=== PATIENT | male | born 1955 | race Caucasian/White ===

== ENCOUNTER 2021-01-28 08:16 | Emergency (ER) | payer OTHER ==
[~2021-01-28] VITALS: Ht 182.9 cm; Wt 79.4 kg
[~2021-01-28 08:16] MED LIST: CARI350T34; MESA400C PO; MESA400C2; METF-1022; SITA50TA3
[2021-01-28 08:23] VITALS: BP 182/108
[2021-01-28] MEDS ORDERED: MORPHINE SULFATE 4 MG/ML SYR IM ONE (08:30)
[2021-01-28] MEDS ORDERED: KETOROLAC 30 MG/ML VIAL IM ONE (08:30)
[2021-01-28] MEDS ORDERED: LID5T TP (08:33)
[2021-01-28] MEDS ORDERED: DICL100G5 TP (08:33)
[2021-01-28] MEDS ORDERED: ACET-8386 PO (08:33)
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
[2021-01-28] MEDS ORDERED: LIDOCAINE 5% 1 EA PATCH TP SCH (09:00)
--- NOTE | 2021-01-28 09:08 | NUR ---
PATIENT C/O SOB AND CHEST PAIN, MD AT BEDSIDE EVALUATING PATIENT.
--- NOTE | 2021-01-28 09:12 | NUR ---
EMT AT BEDSIDE FOR EKG
--- NOTE | 2021-01-28 09:39 | NUR ---
XRAY AT BEDSIDE
--- NOTE | 2021-01-28 09:50 | NUR ---
BLOOD SAMPLES TAKEN AND WALKED TO LAB.
[2021-01-28 10:30] LABS: BASOPHILS # (AUTO) 0.1 K/uL (0.00-0.22); EOSINOPHILS # (AUTO) 0.2 K/uL (0-0.4); RED BLOOD CELL COUNT(AUTO) 5.59 MIL/uL (4.20-6.10)
[2021-01-28 10:36] LABS: BASOPHILS % (AUTO) 0.8 % (0.0-2.0); EOSINOPHILS % (AUTO) 1.6 % (0.0-4.0); HEMATOCRIT 50.7 % (36-52); HEMOGLOBIN 17.1 g/dL (12.0-18.0); LYMPHOCYTES # (AUTO) 1.9 K/uL (2.0-11.5); LYMPHOCYTES % (AUTO) 17.8 % (20.5-51.1); MEAN CORPUSCULAR HEMOGLOBIN 31 pg (27-31); MEAN CORPUSCULAR HGB CONC 34 g/dL (33-37); MEAN CORPUSCULAR VOLUME 90.7 fL (80-94); MONOCYTES % (AUTO) 8.9 % (1.7-9.3); NEUTROPHILS # (AUTO) 7.7 K/uL (1.8-7.7); NEUTROPHILS % (AUTO) 70.9 % (42.2-75.2); PLATELET COUNT (AUTO) 367 K/uL (140-450); RED CELL DISTRIBUTION WIDTH 16.6 % (11.6-13.7); WHITE BLOOD COUNT (AUTO) 10.9 K/uL (4.8-10.8)
[2021-01-28 10:39] LABS: ALBUMIN 4.3 g/dL (3.4-5.0); ANION GAP 18.4 (8-16); CARBON DIOXIDE 23.8 mmol/L (21-32); CREATININE 1.1 mg/dL (0.6-1.3); POTASSIUM 4.2 mmol/L (3.5-5.1); TOTAL BILIRUBIN 0.4 mg/dL (0.0-1.0)
[2021-01-28 11:03] VITALS: BP 134/84
--- NOTE | 2021-01-28 11:27 | NUR ---
Patient discharged with v/s stable. Written and verbal after care instructions given and explained. Patient alert, oriented and verbalized understanding of instructions. Ambulatory with steady gait. All questions addressed prior to discharge. ID band removed. Patient advised to follow up with PMD. Rx of NORCO, DICLOFENAC SODIUM GEL, LIDODERM PATCH given. Patient educated on indication of medication including possible reaction and side effects. Opportunity to ask questions provided and answered.
== END 2021-01-28 11:27 | disposition home or self-care (01) ==
LOC: MED 08:16
DX: M54.5 Low back pain (principal); G89.29 Other chronic pain; M25.551 Pain in right hip; R07.9 Chest pain, unspecified; E11.9 Type 2 diabetes mellitus without complications; Z79.1 Long term (current) use of non-steroidal anti-inflammatories (NSAID); Z79.899 Other long term (current) drug therapy
CPT/HCPCS: 36415; 71045; 80053; 84484; 85025; 93005; 96372; 99285; J1885; J2270; Q0092

== ENCOUNTER 2022-03-17 18:08 | Inpatient (IN) | payer OTHER ==
[~2022-03-17] VITALS: Ht 182.9 cm; Wt 66.7 kg
[~2022-03-17 18:08] MED LIST changes: +ACET-8905 PO; +DICL100G5 TP; +LID5T TP; -METF-1022; +METF-1253
[2022-03-17 18:25] VITALS: BP 106/93
--- NOTE | 2022-03-17 18:38 | NUR ---
PT AMB TO BED 10
--- NOTE | 2022-03-17 18:45 | NUR ---
67/M WALKED IN C/O BACK PAIN ACCOMPANIED BY LEFT LEG NUMBNESS. PT REPORTS HAVING LAMINECTOMY 02/24 AND HAS DEVELOPED THE PAIN SINCE THEN. PT HR ELEVATED AT TRIAGE. PT PLACED IN GOWN AND ON MONITOR. EKG DONE AT BEDSIDE. IV ESTABLISHED TO RIGHT AC WITH 20G. PMH: DM
--- NOTE | 2022-03-17 19:20 | NUR ---
hand off report given to Danyel hinson
[2022-03-17] MEDS ORDERED: PIPERACILLIN/TAZOBACTAM 3.375 GM in DEXTROSE 5% 50 ML IV ONE (19:40)
[2022-03-17] MEDS ORDERED: NACL 0.9% 2,000 ML IV ONE (19:40)
[2022-03-17] MEDS ORDERED: VANCOMYCIN 1,000 MG in DEXTROSE 5% 250 ML IV ONE (19:40)
[2022-03-17] MEDS ORDERED: OXYC60TE PO (19:43)
--- NOTE | 2022-03-17 19:45 | NUR ---
Patient resting comfortably in bed, alert, chest rise and fall symmetrical, no s/s of distress.
[2022-03-17] MEDS ORDERED: ONDANSETRON 4 MG/2 ML VIAL IVP ONE (20:00)
[2022-03-17] MEDS ORDERED: MORPHINE SULFATE 4 MG/ML SYR IVP ONE ×2 (20:00→20:55)
[2022-03-17 20:07] LABS: BASOPHILS # (AUTO) 0.1 K/uL (0.00-0.22); BASOPHILS % (AUTO) 0.7 % (0.0-2.0); EOSINOPHILS # (AUTO) 0.2 K/uL (0-0.4); EOSINOPHILS % (AUTO) 1.3 % (0.0-4.0); HEMATOCRIT 48.6 % (36-52); HEMOGLOBIN 16.4 g/dL (12.0-18.0); LYMPHOCYTES # (AUTO) 2.9 K/uL (2.0-11.5); LYMPHOCYTES % (AUTO) 23.8 % (20.5-51.1); MEAN CORPUSCULAR HEMOGLOBIN 32 pg (27-31); MEAN CORPUSCULAR HGB CONC 34 g/dL (33-37); MEAN CORPUSCULAR VOLUME 93.7 fL (80-94); NEUTROPHILS # (AUTO) 8.1 K/uL (1.8-7.7); NEUTROPHILS % (AUTO) 66.2 % (42.2-75.2); PLATELET COUNT (AUTO) 486 K/uL (140-450); RED BLOOD CELL COUNT(AUTO) 5.19 MIL/uL (4.20-6.10); RED CELL DISTRIBUTION WIDTH 14.4 % (11.6-13.7); WHITE BLOOD COUNT (AUTO) 12.1 K/uL (4.8-10.8)
--- NOTE | 2022-03-17 20:10 | NUR ---
Patient to radiology.
[2022-03-17 20:27] LABS: PROTHROMBIN TIME 10.5 secs (10.8-13.4)
[2022-03-17] MEDS ORDERED: PIPERACILLIN/TAZOBACTAM 3.375 GM VIAL IV ONE (20:29)
--- NOTE | 2022-03-17 20:30 | NUR ---
Patient back from radiology.
--- NOTE | 2022-03-17 20:30 | NUR ---
Patient resting comfortably in bed, alert, chest rise and fall symmetrical, no s/s of distress.
[2022-03-17 20:37] LABS: ALBUMIN 3.9 g/dL (3.4-5.0); CARBON DIOXIDE 28.1 mmol/L (21-32); CREATININE 1.3 mg/dL (0.6-1.3); POTASSIUM 4.1 mmol/L (3.5-5.1); TOTAL BILIRUBIN 0.5 mg/dL (0.0-1.0)
[2022-03-17] MEDS ORDERED: VANCOMYCIN 1,000 MG VIAL ONE (21:14)
--- NOTE | 2022-03-17 21:58 | NUR ---
Patient resting comfortably in bed, alert, chest rise and fall symmetrical, no s/s of distress.
--- NOTE | 2022-03-17 23:00 | NUR ---
Patient resting comfortably in bed, alert, chest rise and fall symmetrical, no s/s of distress.
--- NOTE | 2022-03-18 01:23 | NUR ---
Patient resting comfortably in bed, alert, chest rise and fall symmetrical, no s/s of distress.
[2022-03-18] MEDS ORDERED: MORPHINE SULFATE 4 MG/ML SYR IVP ONE (01:35)
--- NOTE | 2022-03-18 02:12 | NUR ---
Patient resting comfortably in bed, alert, chest rise and fall symmetrical, no s/s of distress.
--- NOTE | 2022-03-18 03:15 | NUR ---
Patient resting comfortably in bed, alert, chest rise and fall symmetrical, no s/s of distress.
[2022-03-18] MEDS ORDERED: HYDROmorphone PFS 2 MG/ML SYR IVP ONE (04:30)
[2022-03-18] MEDS ORDERED: HYDROmorphone PFS 2 MG/ML SYR ONE (04:34)
--- NOTE | 2022-03-18 04:39 | NUR ---
Patient resting comfortably in bed, alert, chest rise and fall symmetrical, no s/s of distress.
[2022-03-18 04:42] LABS: APPEARANCE,URINE CLEAR (CLEAR); BILIRUBIN,URINE NEGATIVE (NEGATIVE); BLOOD, URINE NEGATIVE (NEGATIVE); COLOR,URINE YELLOW (YELLOW); LEUKOCYTE ESTERASE ,URINE NEGATIVE (NEGATIVE); NITRITE, URINE NEGATIVE (NEGATIVE); UGLUCOSE TRACE (NEGATIVE)
[2022-03-18] MEDS ORDERED: KCL 20 MEQ/WATER INJ PREMIX 200 ML IV PRN (04:55)
[2022-03-18] MEDS ORDERED: MAG SULF 2000 MG/WATER PREMIX 50 ML IV PRN (04:55)
[2022-03-18] MEDS ORDERED: MAGNESIUM OXIDE 400 MG TAB PO PRN (04:55)
[2022-03-18] MEDS ORDERED: ONDANSETRON 4 MG/2 ML VIAL IVP PRN (04:55)
[2022-03-18] MEDS ORDERED: ACETAMINOPHEN 325 MG TAB PO PRN (04:55)
[2022-03-18] MEDS ORDERED: POTASSIUM CHLORIDE 10 MEQ TABER PO PRN (04:55)
[2022-03-18] MEDS ORDERED: DEXTROSE 50% 50 ML SYR IVP PRN (05:00)
--- NOTE | 2022-03-18 06:35 | NUR ---
Patient resting comfortably in bed, alert, chest rise and fall symmetrical, no s/s of distress.
[2022-03-18] MEDS: BLOOD GLUCOSE MONITORING 1 DEV DEV FS SCH ×4 (07:03→21:48)
[2022-03-18] MEDS: MORPHINE SULFATE 4 MG/ML SYR IVP PRN ×4 (07:19→21:27)
--- NOTE | 2022-03-18 07:24 | NUR ---
Change of shift report given to Azalia LOVE. Azalia LOVE verbalized understanding of report, no further questions.
--- NOTE | 2022-03-18 07:30 | NUR ---
RECEIVED REPORT FROM ARNOLD LOVE. PT CALM AND RESTING. ON GOWN AND ON MONITOR
--- NOTE | 2022-03-18 07:48 | NUR ---
Patient will be admitted to care of DR. JUSTIN. Admited to MS. Will go to room 125A. Belongings list completed. Report to PAUL LOVE.
--- NOTE | 2022-03-18 08:03 | NUR ---
RECEIVED BEDSIDE REPORT FROM ER NURSE. PT IS A&OX4, ON ROOM AIR. PT STATES PAIN MEDICATION ADMINISTERED IN ER IS HELPING MANAGE HIS BACK PAIN. PT HAS 18G IV ON THE LEFT AC, WHICH IS PATENT & INTACT CURRENTLY SALINE LOCKED.
--- NOTE | 2022-03-18 09:22 | NUR ---
PATIENT HAS BEEN SCREENED AND CATEGORIZED LOW NUTRITION RISK. PATIENT WILL BE SEEN WITHIN 7 DAYS OF ADMISSION. 03/25/[address] REVIEW[address] BY KACEY FISHMAN RD
[2022-03-18] MEDS: ENOXAPARIN 40 MG/0.4 ML SYR SUBQ SCH (09:28)
[2022-03-18] MEDS: HYDROcodone/APAP 5/325 MG 1 TAB TAB PO PRN (10:32)
[2022-03-18 12:00] VITALS: BP 149/97
--- NOTE | 2022-03-18 13:00 | NUR ---
DISCHARGE PLANNING PATIENT IS A 67-YEAR-OLD MALE ADMITTED ON 03/18/2022 AT [facility]/ED DUE TO CONSTANT BACK PAIN. PATIENT HAD A BACK SURGERY LAST MONTH. PATIENT HAS MEDICAL HISTORY OF DIABETES AND LAMINECTOMY ON 02/24/2022. LEGAL RECEPTIONIST'S MET WITH PATIENT AT BEDSIDE TO DISCUSS AND GATHER PATIENT'S COLLATERAL INFORMATION. PATIENT WAS AWAKE AND ALERT AT THE TIME OF VISIT. PATIENT STATED THAT HE IS LIVING AT HIS SISTER'S HOME WITH HIS MOTHER. PER PATIENT HIS SISTER IS CAREGIVING FOR HIS MOTHER AND RECENTLY DISCUSSED WITH PATIENT THAT SHE IS UNABLE TO CARE FOR HIM AND HIS MOTHER AT THE SAME TIME. THEREFORE SHE ASKED PATIENT TO LEAVE THE HOUSE OR FIND ANOTHER PLACE TO STAY THAT CAN MEET HIS NEEDS DUE TO SISTER NOT BEEN ABLE TO CARE FOR BOTH. PER PATIENT HE IS REALLY UPSET AND OFFENDED WITH HIS FAMILY AND DO NOT WANT TO CONSIDER THEM HIS EMERGENCY CONTACTS. PATIENT REFUSED TO PROVIDE THEIR INFORMATION TO SW AT THE TIME OF THE VISIT. DISCUSSED WITH PATIENT LEVELS OF CARE AND NEEDED RECOMMENDATIONS FROM MD. PATIENT AGREED AND STATED THAT IF MD. RECOMMENDS A SNF FOR PT. OR REHAB HE WILL BE WILLING TO GO AND AFTER HIS DC PLAN WILL BE CONSIDERING A [facility] FAC[facility]. PER PATIENT HE IS GETTING ABOUT $960.00 PER MONTH FROM [facility] AND ABOUT $ 320.00 A MONTH FROM DISABILITY. SW INFORMED PATIENT THAT SW WILL ENDORSE INFORMATION TO CM. PER PATIENT HE HAS NO ISSUES GETTING OR TAKING HIS MEDICATIONS AND GETS THEM FROM [facility]/ IN [facility] [place]. AND [facility] IN [facility]. PER PATIENT HE HAS ONLY A CANE AND NO OTHER DME. HE HAS NOT GOT ANY OTHER DME AT HOME EVEN AFTER HIS SURGERY. DALJIT DISCUSSED WITH PATIENT ABOUT IMPORTANCE OF MAKING AN APPOINTMENT TO FOLLOW UP WITH PCP DR. LYMAN AT [facility] WHEN HE IS READY FOR DISCHARGE PATIENT AGREED. PATIENT ALSO STATED THAT HE WILL NEED TO TRANSPORTATION AT DISCHARGE, TO EITHER HIS SISTER'S HOME WHERE HE WILL BE RETURNING AFTER HE IS READY OR STABLE TO DISCHARGE, IF [facility]/MD DO NOT RECOMMEND A SNF PLACEMENT FOR P.T OT REHAB. SW THANKED PATIENT FOR ALL HIS INFORMATION. SW/CM WILL FOLLOW UP NEEDED.
--- NOTE | 2022-03-18 13:23 | NUR ---
PHYSICAL THERAPIST ASSISTED PT WITH GETTING OUT OF BED, BUT PT INSISTED ON RETURNING TO BED AFTER FEW STEPS. PT IS NOW RESTING COMFORTABLY.
--- NOTE | 2022-03-18 15:19 | NUR ---
DC PLANNIN YRS OLD MALE PATIENT WAS ADMITTED FROM HOME WITH A DX OF BACK PAIN PATIENT HAD BACK SURGERY RECENTLY LAMINECTOMY ON 02/24. XR LUMBAR SPINE SHOWED NEGATIVE FOR COMPRESSION DEFORMITY. LUMBAR SPINE SHOWED NO OBVIOUS ACUTE FINDINGS IN THE LUMBAR SPINE. ADMINISTERED IV MORPHINE FOR PAIN AND CONTINUED HOME MEDS. DC PLAN TO GO HOME WHEN STABLE. CM TO FOLLOW Addendum: 03/19/22 at 1132 by Joellen Baig RN DC PLANNING: PATIENT HAS AN ORDER FOR MRI SPINE WITH CONTRAST. CALLED [facility] STATED THEY DON'T HAVE SUPERVISOR PACKING ROOM UNTIL 03/24 CALLED MAXIMILIANO CALDERON [phone] AND FAXED THE ORDER TO [phone] AND [facility] MRI DEPT. AWAITING FOR CALL BACK. CM TO FOLLOW Addendum: 03/19/22 at 1444 by Joellen Baig RN DC PLANNING: RECEIVED A CALL FROM IVETTE AT [facility] STATED NO TO SEND PATIENT TO [facility] BECAUSE NOT CONTRACTED WITH [facility] INSTEAD TO TR[facility]. FAXED REQUEST [facility] AND SPOKE WITH HILDA KRISHNA STATED WILL CHECK WITH MRI DEPT AND CALL BACK. CAMPBELL TO FOLLOW Addendum: 03/19/22 at 1707 by Joellen Baig RN DC PLANNING: FAXED THE LETTER AGREEMENT AND MRI QUESTIONER TO [facility]. IVETTE HIGHTOWER FROM [facility] PROVIDE THE AUTH FOR [facility] [id number] AND FOR TRANSPORT [id number]. [facility] TRANSPORT WILL CALL WITH [facility]. ONCE SUPERVISOR PACKING ROOM AVAILABLE PLS ACTIVATE THE CALL TO [facility] [phone] IT WILL CALL AND SCHEDULED IT WAIT AND RETURN FOR 1 HR. NOTIFIED RUDDY BARBOSA TO FOLLOW. Addendum: 03/19/22 at 1714 by Joellen Baig RN DC PLANNING: RECEIVED A CALL FROM ERENDIRA STEVENS SUP AT [facility] STATED LET THE NURSE TO CALL RADIOLOGY NURSE [phone] NOTIFIED RAMANA LOVE. RUDDY STEVENS SUP TO FOLLOW Addendum: 03/22/22 at 1222 by Joellen Baig RN DC PLANNING: RECEIVED A CALL FROM SHANANN STATED SHE WORKS FOR THE [employer] [phone] STATED PATIENT CALLED HE AND NOTIFIED HER THAT HE WAS ADMITTED TO THE HOSPITAL. PER SHANNAN HE WAS SCHEDULED TO MRI ON THE 03/17 AND PATIENT COULDN'T WAIT ANY LONGER AND LEFT WITHOUT DOING IT. RUDDY STEVENSPLYWOOD AND VENEER REPAIRER RECEIVED A CALL FRO DR JONNY TERRY [phone] STATED HE REQUESTED PATIENT TO BE TRANSFERRED TO [facility], ACCEPTING DR WILL BE DR HARVEY. FAXED ALL PAPERWORK TO [facility] [phone]. CM TO FOLLOW Addendum: 03/22/22 at 1621 by Joellen Baig RN DC PLANNING: PATIENT IS ACCEPTED AT [facility] [address] [address] CAN GO TO ROOM 212 A # TO GIVE REPORT [phone] EXT [phone] .[facility] TRANSPORT WITH [facility] AWAITING FOR ETA. NOTIFIED MATTHEW LOVE. CAMPBELL TO FOLLOW Addendum: 03/23/22 at 1201 by Joellen Baig RN RECEIVED A CALL FROM [facility] SPOKE WITH BARRY STATED NEEDS AUTH FROM [facility]. CALLED [facility] STATED THEY CALLED 03/22 AT 5:30 THAT THEY ARE UNABLE TO GET AUTH. CM DIDN'T RECEIVE ANY CALLS CHECKED WITH HOUSE SUP AND PRIMARY NURSE BERTO NOT RECEIVED ANY CALLS. CAMPBELL CALLED SHANNAN HIGHTOWER AT [facility] [phone] NOTIFIED HER THAT [facility] IS RESPONSIBLE FOR THE TRANSPORT. PER SHANNAN SINCE [facility] IS GIVING AUTH FOR HOSPITAL STAY THEY HAVE TO GIVE AUTH FOR TRANSPORT BUT CM EXPLAINED THAT [facility] WON'T COVER THE AREA. HOWEVER [facility] HAS TO FAX THE ORDER TO [facility] FAX [phone] ATTENTION TO DERREK BRUNO CALLED [facility] SPOKE WITH BARRY AND EXPLAINED TO REQUEST AND PROVIDE ALL THE INFO.
[2022-03-18 16:00] VITALS: BP 127/74
--- NOTE | 2022-03-18 19:26 | NUR ---
RECEIVED ENDORSEMENT FROM PAUL LOVE, PATIENT WAS STABLE DURING THE CHANGE OF SHIFT. PATIENT ALERT AND ORIENTED. PATIENT WAS ABLE TO VERBALIZE HE WAS IN PAIN IN HIS BACK X 10/10. NURSING WILL GIVE PAIN MANAGEMENT WITH HIS ROUTINE MEDICATIONS. PATIENT IS ON ROOM AIR WITH NO NOTED RESPIRATORY DISTRESS. BEDSIDE COMMODE WAS AVAILABLE. SIDE RAILS UP X 2 FOR SAFETY AND ADJUSTMENTS. CALL LIGHT WITHIN REACH. [email or web address]
--- NOTE | 2022-03-18 19:30 | NUR ---
ENDORSED PT TO NIGHTSHIFT RN. PT IN STABLE CONDITION.
[2022-03-18 20:00] VITALS: BP 121/84
--- NOTE | 2022-03-18 21:24 | NUR ---
C/O BACK PAIN , BP 125/82 , RR 18 , O2 SAT 99 % - WILL MEDICATE .
--- NOTE | 2022-03-18 21:55 | NUR ---
NO BLOOD SUGAR COVERAGE WAS PATIENT WAS WITHIN RANGE. PATIENT TOLERATED MEDICATION PASS WELL. PATIENT WAS GIVEN PAIN MEDICATION PER HIS REQUEST BY COVERING RN. PATIENT HAD NO NOTED RESPIRATORY DISTRESS. SIDE RAILS UP X 2 FOR COMFORT AND SELF ADJUSTMENT. CALL LIGHT WITHIN REACH. [email or web address]
--- NOTE | 2022-03-18 23:19 | NUR ---
DURING ROUNDS NURSING NOTED PATIENT IN BED ASLEEP. NO NOTED S/S OF PAIN/DISCOMFORT. NOTED PATIENT'S CHEST RISING AND FALLING WITHOUT DISTRESS. SIDE RAILS UP X 2. CALL LIGHT WITHIN REACH FOR ASSISTANCE. [email or web address]
--- NOTE | 2022-03-19 01:15 | NUR ---
PATIENT IN BED ASLEEP. NO NOTED S/S OF PAIN/DISCOMFORT. NOTED PATIENT'S CHEST RISING AND FALLING WITHOUT DISTRESS. SIDE RAILS UP X 2. CALL LIGHT WITHIN REACH FOR ASSISTANCE. [email or web address]
--- NOTE | 2022-03-19 02:29 | NUR ---
WHEN THE TIME I WILL GIVE PAIN MED - I FOUND PT SLEEPING , I CALL HIS NAME 4X , BUT STILL SLEEPING SOUNDLY , BY HIS FACIAL EXPRESSION - 0 PAIN - WILL CONT. TO MONITOR , CALL LIGHT WITHIH REACH .
--- NOTE | 2022-03-19 02:33 | NUR ---
RE VISITS PT - STILL PT SLEEPING , CHEST RISE AND FALL EQUALLY - WILL CONT . TO MONITOR , CALL LIGHT WITHIN REACH .
--- NOTE | 2022-03-19 03:38 | NUR ---
PATIENT NOTED ASLEEP AT THIS TIME. PATIENT REMAINS CLEAN AND DRY. SIDE RAILS UP X 3. CALL LIGHT WITHIN REACH. NURSING WILL FREQUENT THIS ROOM FOR ANTICIPATED NEEDS. [email or web address]
[2022-03-19 04:00] VITALS: BP 134/96
[2022-03-19 05:43] LABS: BASOPHILS # (AUTO) 0.1 K/uL (0.00-0.22); BASOPHILS % (AUTO) 0.5 % (0.0-2.0); EOSINOPHILS # (AUTO) 0.2 K/uL (0-0.4); EOSINOPHILS % (AUTO) 1.6 % (0.0-4.0); HEMATOCRIT 48.6 % (36-52); HEMOGLOBIN 16.1 g/dL (12.0-18.0); LYMPHOCYTES # (AUTO) 2.4 K/uL (2.0-11.5); LYMPHOCYTES % (AUTO) 17.1 % (20.5-51.1); MEAN CORPUSCULAR HEMOGLOBIN 31 pg (27-31); MEAN CORPUSCULAR HGB CONC 33 g/dL (33-37); MEAN CORPUSCULAR VOLUME 95.1 fL (80-94); NEUTROPHILS # (AUTO) 10.5 K/uL (1.8-7.7); NEUTROPHILS % (AUTO) 73.8 % (42.2-75.2); PLATELET COUNT (AUTO) 435 K/uL (140-450); RED BLOOD CELL COUNT(AUTO) 5.11 MIL/uL (4.20-6.10); RED CELL DISTRIBUTION WIDTH 14.2 % (11.6-13.7); WHITE BLOOD COUNT (AUTO) 14.3 K/uL (4.8-10.8)
[2022-03-19 06:26] LABS: ALBUMIN 3.6 g/dL (3.4-5.0); ANION GAP 9.9 (8-16); CREATININE 1.1 mg/dL (0.6-1.3); MAGNESIUM 2.2 mg/dL (1.8-2.4); POTASSIUM 4.9 mmol/L (3.5-5.1); TOTAL BILIRUBIN 0.6 mg/dL (0.0-1.0)
[2022-03-19] MEDS: INSULIN LISPRO SLIDING SCALE 100 UNITS/ML VIAL SUBQ PRN ×2 (06:46→21:17)
[2022-03-19] MEDS: BLOOD GLUCOSE MONITORING 1 DEV DEV FS SCH ×4 (06:46→21:16)
--- NOTE | 2022-03-19 07:10 | NUR ---
ENDORSED PATIENT CARE TO RAMANA LOVE FOR CONTINUITY OF CARE, PATIENT WAS STABLE DURING THE CHANGE OF CARE. [email or web address]
[2022-03-19 08:00] VITALS: BP 134/96
[2022-03-19] MEDS: ENOXAPARIN 40 MG/0.4 ML SYR SUBQ SCH (09:00)
[2022-03-19] MEDS: MORPHINE SULFATE 4 MG/ML SYR IVP PRN ×3 (09:00→23:01)
[2022-03-19] MEDS: GABAPENTIN 300 MG CAP PO SCH ×3 (09:00→17:00)
[2022-03-19 15:10] VITALS: BP 134/96
--- NOTE | 2022-03-19 19:30 | NUR ---
RECEIVED REPORT FROM DAY SHIFT NURSE RAMANA AWAKE ALERT ORIENTED, ON ROOM AIR. NO DISTRESS. ABLE TO AMBULATE WITH ASSIST. NO COMPLAINTS OF PAIN AT THIS TIME. SAFETY MEASURES IN PLACE. CALL LIGHT WITHIN REACH.
--- NOTE | 2022-03-19 21:16 | NUR ---
BLOOD SUGAR CHECKED WAS 197. HUMALOG INSULIN ADMINISTERED ORDERED PER SLIDING SCALE.
--- NOTE | 2022-03-19 21:45 | NUR ---
PATIENT LEFT TO [facility] FOR MRI PICKED UP BY 2 COMMUNITY ARTS WORKER IN STABLE CONDITION.
--- NOTE | 2022-03-19 22:40 | NUR ---
PATIENT IS BACK FROM [facility] PROCEDURE NOT DONE. PER [facility] STAFF [facility] CALLED EAR[facility]ER DURING DAY SHIFT INFORMING PAPER WORKS NOT COMPLETE/CORRECT SO THEY CANCELLED THE APPT AT 1930 BUT NOBODY INFORM MATERIAL CONTROL ANALYST.
[2022-03-20] VITALS: BP 146/94
--- NOTE | 2022-03-20 02:17 | NUR ---
MADE ROUNDS PATIENT AWAKE WITH FACE COVERED WITH BLANKET. NO DISTRESS, BREATHING NORMAL WITH SYMMETRICAL RISE AND FALL OF THE CHEST.
[2022-03-20] MEDS: MORPHINE SULFATE 4 MG/ML SYR IVP PRN ×4 (04:43→18:47)
--- NOTE | 2022-03-20 04:43 | NUR ---
COMPLAINED OF SEVERE BACK PAIN, MEDICATED WITH MORPHINE IVP.
[2022-03-20 05:59] LABS: BASOPHILS # (AUTO) 0.1 K/uL (0.00-0.22); BASOPHILS % (AUTO) 0.6 % (0.0-2.0); EOSINOPHILS # (AUTO) 0.2 K/uL (0-0.4); EOSINOPHILS % (AUTO) 1.1 % (0.0-4.0); HEMATOCRIT 47.4 % (36-52); HEMOGLOBIN 15.7 g/dL (12.0-18.0); LYMPHOCYTES # (AUTO) 2.4 K/uL (2.0-11.5); LYMPHOCYTES % (AUTO) 14.5 % (20.5-51.1); MEAN CORPUSCULAR HEMOGLOBIN 31 pg (27-31); MEAN CORPUSCULAR HGB CONC 33 g/dL (33-37); MEAN CORPUSCULAR VOLUME 94.6 fL (80-94); MONOCYTES # (AUTO) 1.4 K/uL (0.8-1.0); MONOCYTES % (AUTO) 8.3 % (1.7-9.3); NEUTROPHILS # (AUTO) 12.6 K/uL (1.8-7.7); NEUTROPHILS % (AUTO) 75.5 % (42.2-75.2); PLATELET COUNT (AUTO) 397 K/uL (140-450); RED BLOOD CELL COUNT(AUTO) 5.02 MIL/uL (4.20-6.10); RED CELL DISTRIBUTION WIDTH 14.1 % (11.6-13.7); WHITE BLOOD COUNT (AUTO) 16.7 K/uL (4.8-10.8)
[2022-03-20] MEDS: BLOOD GLUCOSE MONITORING 1 DEV DEV FS SCH ×4 (06:33→20:28)
--- NOTE | 2022-03-20 06:35 | NUR ---
BLOOD SUGAR CHECK WAS 119 NO INSULIN COVERAGE NEEDED.
[2022-03-20 06:44] LABS: ALBUMIN 3.2 g/dL (3.4-5.0); CARBON DIOXIDE 30.9 mmol/L (21-32); CREATININE 1.1 mg/dL (0.6-1.3); POTASSIUM 3.9 mmol/L (3.5-5.1); TOTAL BILIRUBIN 0.3 mg/dL (0.0-1.0)
--- NOTE | 2022-03-20 07:16 | NUR ---
ENDORSED PATIENT TO MORNING SHIFT NURSE FOR CONTINUITY OF CARE.
--- NOTE | 2022-03-20 07:17 | NUR ---
RECEIVED PT FROM BRAIDING OPERATOR NURSE YUE FOR CONTINUITY OF CARE. PT SLEEPING, EASILY AROUSABLE BY VERBAL STIMULI. A&O4, ABLE TO MAKE NEEDS KNOWN. RESPIRATIONS EVEN AND UNLABORED ON RA. NO DISTRESS NOTED. IV SITE ON LFA, SL. CALL LIGHT WITHIN REACH. SAFETY PRECAUTIONS IN PLACE. WILL CONTINUE TO MONITOR.
[2022-03-20 08:00] VITALS: BP 118/79
[2022-03-20] MEDS: GABAPENTIN 300 MG CAP PO SCH ×3 (08:54→16:27)
--- NOTE | 2022-03-20 08:54 | NUR ---
ADMINISTERED SCHEDULED MORNING MEDS. PT TEACHING ABOUT MEDS GIVEN. PT VERBALIZED UNDERSTANDING.
[2022-03-20] MEDS: ENOXAPARIN 40 MG/0.4 ML SYR SUBQ SCH (08:55)
--- NOTE | 2022-03-20 09:34 | NUR ---
PT COMPLAINED OF BACK PAIN 02/08. PRN PAIN MED ADMINISTERED BY KATE MILLER.
[2022-03-20] MEDS: MORPHINE TAB ER 15 MG TABER PO SCH ×2 (10:37→21:25)
[2022-03-20] MEDS ORDERED: VANCOMYCIN PER PHARMACY MC PRN (11:45)
[2022-03-20] MEDS: INSULIN LISPRO SLIDING SCALE 100 UNITS/ML VIAL SUBQ PRN ×2 (12:09→21:29)
--- NOTE | 2022-03-20 12:15 | NUR ---
SLIDING SCALE INSULIN ADMINISTERED FOR BS 193. SCHEDULED MED ALSO ADMINISTERED. PT TOLERATED WELL.
[2022-03-20] MEDS: VANCOMYCIN 750 MG in DEXTROSE 5% 250 ML IV SCH (14:06)
--- NOTE | 2022-03-20 14:06 | NUR ---
IV ABX ADMINISTERED BY KATE MILLER. NO ADVERSE REACTION NOTED. PT COMPLAINED OF 8/0 BACK PAIN. PRN PAIN MED ADMINISTERED BY KATE MILLER.
[2022-03-20 16:00] VITALS: BP 127/77
--- NOTE | 2022-03-20 16:28 | NUR ---
NO INSULIN COVERAGE NEEDED FOR BS 113. ADMINISTERED SCHEDULED MED.
--- NOTE | 2022-03-20 18:28 | NUR ---
PT IN BED, EATING DINNER. NO DISTRESS NOTED. NO COMPLAINTS OF PAIN AT THIS TIME. CALL LIGHT WITHIN REACH. SAFETY PRECAUTIONS IN PLACE.
--- NOTE | 2022-03-20 19:26 | NUR ---
ENDORSED PT TO FRONT DESK NURSE ARNOLD. ALL NEEDS MET THROUGHOUT SHIFT. PT IS STABLE.
--- NOTE | 2022-03-20 19:30 | NUR ---
RECEIVED REPORT FROM DAY SHIFT NURSE BERTO FOR CONTINUITY OF CARE. PATIENT IS A&O X4. PATIENT IS ON ROOM AIR, BREATHING IS NORMAL WITH SYMMETRICAL RISE AND FALL OF CHEST. IV IS A 18G LFA; NO FLUIDS RUNNING AT THIS TIME. PATIENT IS SLEEPING, LYING IN SEMI-FOWLERS POSITION. PATIENT HAS BLANKET OVER HIS HEAD. WOKE PATIENT UP TO ASSESS THAT HE WAS STILL BREATHING. PATIENT WAS EASILY AWAKENED BY CALLING HIS NAME. PATIENT'S MOOD WAS GOOD; I INTRODUCED MYSELF AND HE GREETED ME WITH A SMILE SAYING HI. I TOLD THE PATIENT HE COULD GO BACK TO SLEEP AND I WOULD BE CHECKING IN ON HIM. HE SAID OK. BED IS IN LOWEST POSITION, WHEELS LOCKED, CALL LIGHT IN PLACE. WILL CONTINUE TO OBSERVE PATIENT.
[2022-03-20 20:00] VITALS: BP 127/80
[2022-03-20] MEDS ORDERED: CEFEPIME 1,000 MG VIAL ONE (20:34)
[2022-03-20] MEDS: CEFEPIME 1,000 MG in DEXTROSE 5% 50 ML IV SCH (21:24)
--- NOTE | 2022-03-20 21:35 | NUR ---
OBTAINED PATIENT'S BS. BS WAS 167. ADMINISTERED 2 UNITS OF HUMALOG FOR COVERAGE. PATIENT TOLERATED WELL. ADMINISTERED 2100 IVPB CEFECPIME. IVPB GIVEN STARTED SUCCESSFULLY WITHOUT ANY ISSUES. ADMINISTERED 2100 MORPHINE TABLET. PATIENT TOLERATED WELL WITHOUT ANY DIFFICULTY IN SWALLOWING. PATIENT WAS AWAKE WHEN I ENTERED THE ROOM, SITTING IN SEMI-FOWLERS POSITION. PATIENT'S BREATHING IS NORMAL WITH SYMMETRICAL RISE AND FALL OF CHEST. WILL CONTINUE TO OBSERVE PATIENT.
[2022-03-21] MEDS: MORPHINE SULFATE 4 MG/ML SYR IVP PRN ×5 (00:01→21:14)
--- NOTE | 2022-03-21 00:15 | NUR ---
PATIENT CALLED AND REQUESTED PAIN MEDICATION FOR 10/10 BACK PAIN. OBTAINED PATIENT'S VITALS, VITALS WERE: BP 126/78, HR 80, O2 97, RR 18. CHECKED PATIENT'S CHART, MORPHINE IVP WAS APPROPRIATE TO ADMINISTER. ADMINISTERED IVP OF MORPHINE; PATIENT TOLERATED WELL. PATIENT'S BREATHING IS NORMAL WITH SYMMETRICAL RISE AND FALL OF CHEST. WILL CONTINUE TO OBSERVE PATIENT.
--- NOTE | 2022-03-21 01:15 | NUR ---
LOOKED IN ON PATIENT. PATIENT WAS SLEEPING; BREATHING WAS NORMAL WITH SYMMETRICAL RISE AND FALL OF CHEST. WILL CONTINUE TO OBSERVE PATIENT.
[2022-03-21] MEDS ORDERED: VANCOMYCIN 500 MG VIAL ONE (02:46)
[2022-03-21] MEDS: VANCOMYCIN 750 MG in DEXTROSE 5% 250 ML IV SCH (02:54)
--- NOTE | 2022-03-21 03:00 | NUR ---
ADMINISTERED VANCO IVPB TO PATIENT. IVPB WAS STARTED SUCCESSFULLY WITHOUT ANY ISSUES. PATIENT IS SLEEPING, LYING IN SEMI-FOWLERS POSITION. BREATHING IS NORMAL WITH SYMMETRICAL RISE AND FALL OF CHEST. BED IS IN LOWEST POSITION, WHEELS LOCKED, CALL LIGHT IN PLACE. WILL CONTINUE TO OBSERVE PATIENT.
[2022-03-21 04:00] VITALS: BP 126/78
--- NOTE | 2022-03-21 04:30 | NUR ---
LOOKED IN ON PATIENT. PATIENT WAS SLEEPING, LYING IN SEMI-FOWLERS POSITION WITH BLANKET OVER HIS HEAD. PATIENT'S BREATHING WAS NORMAL WITH SYMMETRICAL RISE AND FALL OF CHEST. WILL CONTINUE TO OBSERVE PATIENT.
[2022-03-21 05:55] LABS: ALBUMIN 2.9 g/dL (3.4-5.0); ANION GAP 11.7 (8-16); CARBON DIOXIDE 29.1 mmol/L (21-32); CREATININE 0.9 mg/dL (0.6-1.3); POTASSIUM 3.8 mmol/L (3.5-5.1); TOTAL BILIRUBIN 0.6 mg/dL (0.0-1.0)
[2022-03-21 05:56] LABS: BASOPHILS # (AUTO) 0.1 K/uL (0.00-0.22); BASOPHILS % (AUTO) 0.9 % (0.0-2.0); EOSINOPHILS # (AUTO) 0.2 K/uL (0-0.4); EOSINOPHILS % (AUTO) 1.9 % (0.0-4.0); HEMATOCRIT 42.8 % (36-52); HEMOGLOBIN 14.2 g/dL (12.0-18.0); LYMPHOCYTES # (AUTO) 2.6 K/uL (2.0-11.5); LYMPHOCYTES % (AUTO) 30.3 % (20.5-51.1); MEAN CORPUSCULAR HEMOGLOBIN 32 pg (27-31); MEAN CORPUSCULAR HGB CONC 33 g/dL (33-37); MEAN CORPUSCULAR VOLUME 95.7 fL (80-94); MONOCYTES # (AUTO) 0.9 K/uL (0.8-1.0); MONOCYTES % (AUTO) 11.2 % (1.7-9.3); NEUTROPHILS # (AUTO) 4.7 K/uL (1.8-7.7); NEUTROPHILS % (AUTO) 55.7 % (42.2-75.2); PLATELET COUNT (AUTO) 334 K/uL (140-450); RED BLOOD CELL COUNT(AUTO) 4.47 MIL/uL (4.20-6.10); RED CELL DISTRIBUTION WIDTH 13.5 % (11.6-13.7); WHITE BLOOD COUNT (AUTO) 8.5 K/uL (4.8-10.8)
[2022-03-21] MEDS: BLOOD GLUCOSE MONITORING 1 DEV DEV FS SCH ×4 (07:06→21:25)
--- NOTE | 2022-03-21 07:30 | NUR ---
ENDORSED TO DAY SHIFT NURSE BERTO. FOR CONTINUITY OF CARE. PATIENT IS STABLE.
--- NOTE | 2022-03-21 07:31 | NUR ---
RECEIVED REPORT FROM PHARM TECH NURSE ARNOLD FOR CONTINUITY OF CARE. PT AWAKE IN BED, EYES CLOSED. A&O4, ABLE TO MAKE NEEDS KNOWN. RESPIRATIONS EVEN AND UNLABORED ON RA. NO DISTRESS NOTED. NOTED SURGICAL SCAR ON PTS BACK. IV SITE ON LFA 18G, SL. PT COMPLAINING OF PAIN. RN ARNOLD AWARE AND WILL ADMINISTER PRN PAIN MEDS. CALL LIGHT WITHIN REACH. SAFETY PRECAUTIONS IN PLACE.
[2022-03-21 08:00] VITALS: BP 120/76
--- NOTE | 2022-03-21 08:00 | NUR ---
PATIENT CALLED AND REQUESTED PAIN MEDICATION FOR 10/10 BACK PAIN. CHECKED CHART, MORPHINE WAS APPROPRIATE TO GIVE. ADMINISTERED MORPHINE, PATIENT TOLERATED WELL. CARE HAS BEEN ENDORSED TO DAY SHIFT NURSE.
[2022-03-21] MEDS: GABAPENTIN 300 MG CAP PO SCH ×3 (08:43→16:37)
[2022-03-21] MEDS: MORPHINE TAB ER 15 MG TABER PO SCH ×2 (08:43→20:59)
[2022-03-21] MEDS: ENOXAPARIN 40 MG/0.4 ML SYR SUBQ SCH (08:45)
--- NOTE | 2022-03-21 08:47 | NUR ---
ADMINISTERED SCHEDULED MEDS. PT TEACHING ABOUT MEDS DONE. PT VERBALIZES UNDERSTANDING. PT TOLERATED WELL.
[2022-03-21] MEDS: CEFEPIME 1,000 MG in DEXTROSE 5% 50 ML IV SCH ×2 (09:39→20:59)
--- NOTE | 2022-03-21 10:45 | NUR ---
INFORMED HS REGARDING PT PENDING MRI OF LEFT SPINE WITH CONTRAST AT [facility]. HS WILL CALL TO ARRANGE APPT FOR PT.
[2022-03-21] MEDS: INSULIN LISPRO SLIDING SCALE 100 UNITS/ML VIAL SUBQ PRN (11:15)
--- NOTE | 2022-03-21 11:22 | NUR ---
SLIDING SCALE INSULIN ADMINISTERED FOR BS 186.
[2022-03-21] MEDS: VANCOMYCIN 1,000 MG in DEXTROSE 5% 250 ML IV SCH (14:23)
--- NOTE | 2022-03-21 15:38 | NUR ---
IV LEAKING. RN ATTEMPTED TO INSERT A NEW IV LINE. NEW IV LINE AT RAC 20G, PATENT.
--- NOTE | 2022-03-21 15:59 | NUR ---
RN CALLED [facility] MRI DEPARTMENT MULTIPLE TIMES TO FOLLOW UP ON SCHEDULING THE PATIENT, NO ANSWER EACH TIME.
[2022-03-21 16:00] VITALS: BP 152/76
--- NOTE | 2022-03-21 16:33 | NUR ---
PT COMPLAINED OF 10/10 BACK PAIN. PRN PAIN MED ADMINISTERED BY KATE MILLER. NO BLOOD SUGAR COVERAGE FOR BS 146.
--- NOTE | 2022-03-21 17:30 | NUR ---
PER HS, SHE TRIED SEVERAL TIMES TO CALL [facility] FOR PT'S MRI BUT WASN'T ABLE REACH OUT TO ANYBODY. PT WAS INFORMED.
[2022-03-21] MEDS: HYDROcodone/APAP 5/325 MG 1 TAB TAB PO PRN ×2 (18:46→23:08)
--- NOTE | 2022-03-21 19:19 | NUR ---
ENDORSED PT TO COMMERCIAL REAL ESTATE MANAGER NURSE FOR CONTINUITY OF CARE. ALL NEEDS MET THROUGHOUT SHIFT. PT IS STABLE.
[2022-03-21 20:00] VITALS: BP 159/79
[2022-03-22] VITALS: BP 140/84
[2022-03-22] MEDS: MORPHINE SULFATE 4 MG/ML SYR IVP PRN ×5 (01:14→20:37)
[2022-03-22] MEDS: VANCOMYCIN 1,000 MG in DEXTROSE 5% 250 ML IV SCH (01:27)
--- NOTE | 2022-03-22 03:00 | NUR ---
ENDORSE PATIENT TO KATE DELACRUZ. PATIENT REMAINS IN STABLE CONDITION. Tyler VALENTINE RN.
[2022-03-22] MEDS: HYDROcodone/APAP 5/325 MG 1 TAB TAB PO PRN (04:27)
--- NOTE | 2022-03-22 04:27 | NUR ---
C/O PAIN , BP 127/87 , O2 SAT 98 % - WILL MEDICATE. , CALL LIGHT WITHIN REACH .
[2022-03-22 05:46] LABS: BASOPHILS % (AUTO) 0.6 % (0.0-2.0); EOSINOPHILS # (AUTO) 0.2 K/uL (0-0.4); EOSINOPHILS % (AUTO) 3.2 % (0.0-4.0); HEMATOCRIT 42.7 % (36-52); HEMOGLOBIN 14.2 g/dL (12.0-18.0); LYMPHOCYTES # (AUTO) 2.8 K/uL (2.0-11.5); LYMPHOCYTES % (AUTO) 37.1 % (20.5-51.1); MEAN CORPUSCULAR HEMOGLOBIN 31 pg (27-31); MEAN CORPUSCULAR HGB CONC 33 g/dL (33-37); MEAN CORPUSCULAR VOLUME 94.5 fL (80-94); MONOCYTES # (AUTO) 1.1 K/uL (0.8-1.0); MONOCYTES % (AUTO) 14.6 % (1.7-9.3); NEUTROPHILS # (AUTO) 3.4 K/uL (1.8-7.7); NEUTROPHILS % (AUTO) 44.5 % (42.2-75.2); PLATELET COUNT (AUTO) 356 K/uL (140-450); RED BLOOD CELL COUNT(AUTO) 4.52 MIL/uL (4.20-6.10); WHITE BLOOD COUNT (AUTO) 7.6 K/uL (4.8-10.8)
--- NOTE | 2022-03-22 06:12 | NUR ---
STILL COMPLAINING OF PAIN - PER PHARMACIST VANGIE - MAY GIVE MORPHINE NOW EVEN - NORCO GIVEN 93 MIN. AGO -
--- NOTE | 2022-03-22 06:15 | NUR ---
BP 129/80 O2 SAT 98% - WILL MEDICATE FOR PAIN , WILL CONT. TO MONITOR , CALL LIGHT WITHIN REACH .
[2022-03-22] MEDS: BLOOD GLUCOSE MONITORING 1 DEV DEV FS SCH ×4 (06:36→20:08)
[2022-03-22 06:52] LABS: ANION GAP 11.6 (8-16); CARBON DIOXIDE 31.6 mmol/L (21-32); POTASSIUM 4.2 mmol/L (3.5-5.1); TOTAL BILIRUBIN 0.3 mg/dL (0.0-1.0)
--- NOTE | 2022-03-22 07:28 | NUR ---
RECEIVED PT FROM CUSTOMER EXPERIENCE RETAIL CLERK NURSE JAYME FOR CONTINUITY OF CARE. PT AWAKE IN BED. A7O4, ABLE TO MAKE NEEDS KNOWN. RESPIRATIONS EVEN AND UNLABORED ON RA. NO DISTRESS NOTED. BEDSIDE COMMODE, URINAL AND PT'S CANE AT BEDSIDE. CALL LIGHT WITHIN REACH. SAFETY PRECAUTIONS IN PLACE.
[2022-03-22 08:00] VITALS: BP 146/71
--- NOTE | 2022-03-22 08:00 | NUR ---
Patient's Plan of Care was discussed and reviewed with SANDING MACHINE TENDER AUTOMATIC:
[2022-03-22] MEDS: MORPHINE TAB ER 15 MG TABER PO SCH ×2 (08:34→20:08)
[2022-03-22] MEDS: GABAPENTIN 300 MG CAP PO SCH ×3 (08:36→16:37)
[2022-03-22] MEDS: ENOXAPARIN 40 MG/0.4 ML SYR SUBQ SCH (08:36)
--- NOTE | 2022-03-22 08:36 | NUR ---
ADMINISTERED SCHEDULED MORNING MEDS. PT TEACHING ABOUT MEDS GIVEN. PT VERBALIZED UNDERSTANDING.
[2022-03-22] MEDS: CEFEPIME 1,000 MG in DEXTROSE 5% 50 ML IV SCH ×2 (09:49→20:37)
--- NOTE | 2022-03-22 09:49 | NUR ---
SCHEDULED IV ABX ADMINISTERED BY KATE ALVAREZ. NO ADVERSE REACTION NOTED.
--- NOTE | 2022-03-22 10:38 | NUR ---
PT COMPLAINED OF 10/10 BACK PAIN. PRN PAIN MED ADMINISTERED BY KATE ALVAREZ.
--- NOTE | 2022-03-22 10:53 | NUR ---
COVID AG SWAB DONE AND SENT TO LAB.
[2022-03-22] MEDS: INSULIN LISPRO SLIDING SCALE 100 UNITS/ML VIAL SUBQ PRN ×2 (11:14→16:36)
--- NOTE | 2022-03-22 11:17 | NUR ---
SLIDING SCALE INSULIN ADMINISTERED FOR BS 152.
--- NOTE | 2022-03-22 13:20 | NUR ---
RECEIVED A CALL FROM [facility] HIGHTOWER. PT FOR TRANSFER TO [facility]. RM 212A. NUMBER TO GIVE REPORT IS [phone] TO KATE GIRALDO. NO ETA YET. ROE WILL CALL AGAIN FOR ETA.
--- NOTE | 2022-03-22 13:25 | NUR ---
PT MADE AWARE REGARDING THE DC ORDER FOR TRANSFER TO [facility]. PT VERBALIZED UNDERSTANDING.
[2022-03-22] MEDS ORDERED: VANCOMYCIN HCL 1.25 GM in DEXTROSE 5% 250 ML IV SCH (14:00)
[2022-03-22 15:41] VITALS: BP 146/71
[2022-03-22 16:00] VITALS: BP 140/98
--- NOTE | 2022-03-22 16:39 | NUR ---
BS CHECK DONE. SLIDING SCALE INSULIN ADMINISTERED.
--- NOTE | 2022-03-22 16:46 | NUR ---
REPORT GIVEN TO ENZO FOR PT. TRANSFER AT [facility] AT .
--- NOTE | 2022-03-22 19:27 | NUR ---
ENDORSED PT TO METHODOLOGIST NURSE FOR CONTINUITY OF CARE. ALL NEEDS MET THROUGHOUT SHIFT. PT IS STABLE.
--- NOTE | 2022-03-22 19:28 | NUR ---
RECEIVED PATIENT FROM [facility], PATIENT WAS COMPLAINED OF PAIN TO BACK. NURSING GAVE ROUTINE MEDICATION FOR WITH A ROUTINE PAIN MEDICATION TO ASSIST WITH THE PAIN. PATIENT HAD NO NOTED RESPIRATORY DISTRESS. PATIENT KEPT CLEAN AND DRY. NO S/S OF HYPER/HYPOGLYCEMIA. PATIENT IS ABLE TO USE A URINAL AND HAS A BEDSIDE COMMODE FOR BOWEL MOVEMENTS. PATIENT WILL BE TRANSFERRED TO [facility] VIA AMBULANCE. LOADING DOCK HELPER WAS NOTIFIED BECAUSE NO NOTES ON TRANSPORTATION ARRIVAL. [email or web address]
[2022-03-22 20:00] VITALS: BP 145/78
--- NOTE | 2022-03-22 20:00 | NUR ---
Patient's Plan of Care was discussed and reviewed with GAS STATION OPERATOR: Xiao Klein
--- NOTE | 2022-03-22 21:37 | NUR ---
PAIN MEDICATION WAS EFFECTIVE. IV SITE WAS CHANGE BECAUSE IV SITE ON RIGHT UPPER ARM WAS SWOLLEN AND TENDER TO TOUCH. NURSING APPLIED WARM COMPRESS AND DISCONTINUED THE IV AND RESTARTED ON HIS LEFT HAND X 1 ATTEMPT. [email or web address]
--- NOTE | 2022-03-22 22:28 | NUR ---
[facility]ANCE X 2 TRANSFER PATIENT TO [facility] WITH NEWLY IV IN LEFT HAND 20 ROX. RIGHT UPPER ARM IV REMOVED BECAUSE PATIENT COMPLAINED OF PAIN AND AREA NOTED TENDER TO TOUCH. WARM COMPRESS WAS APPLIED TO REDUCE SWELLING AND PAIN. PATIENT DENIED ANY PAIN. PATIENT WAS KEPT CLEAN AND DRY. ALERT ORIENT X 4. LAST IV PAIN PRN WAS GIVEN AT 2036 AND EFFECTIVE. NO NOTED ADVERSE REACTION. PATIENT WILL BE TRANSFER TO [facility] FOR MRI L SPINE WITH CONTRAST. PATIENT WAS BREATHING ON ROOM AIR. FACIAL AFFECT WAS APPROPRIATE. [id number]
--- NOTE | 2022-03-23 15:24 | NUR ---
PHYSICAL THERAPY CO-SIGN The Physical Therapy Progress Notes documented by Operations Analyst have been reviewed. Reviewed/Co-Signed by: Talisha Salas Documentation Done by: RADHA CASPER PTA Addendum: 03/23/22 at 1524 by Talisha Salas PT Amended: Links added.
== END 2022-03-22 22:28 | disposition short-term general hospital (02) | DRG 552 ==
LOC: MED 18:08 → MMU 03-18 04:55
PROVIDERS: ADMIT Hospitalist; ATTEND Internal Medicine
DX: M54.89 Other dorsalgia (principal); E11.9 Type 2 diabetes mellitus without complications; Z20.822 Contact with and (suspected) exposure to COVID-19; N18.9 Chronic kidney disease, unspecified
CPT/HCPCS: 36415; 71045; 72100; 72131; 80053; 80202; 81003; 82550; 82553; 82948; 83605; 83735; 83874; 83880; 84484; 85025; 85610; 85730; 87040; 87081; 87086; 93005; 96365; 96367; 96375; 96376; 97110; 97116; 97163-GP; 97530; 99285; J0692; J1170; J1650; J2270; J2405; J2543; J3370; J7060

== ENCOUNTER 2022-04-24 13:32 | Observation (INO) | payer OTHER ==
[~2022-04-24] VITALS: Ht 182.9 cm; Wt 66.7 kg
[~2022-04-24 13:32] MED LIST changes: -ACET-8905 PO; -CARI350T34; -DICL100G5 TP; -LID5T TP; -MESA400C PO; -MESA400C2; +OXYC60TE PO; -SITA50TA3
[2022-04-24 14:02] VITALS: BP 156/63
--- NOTE | 2022-04-24 14:05 | NUR ---
PT AMB TO BED 6.
--- NOTE | 2022-04-24 14:20 | NUR ---
67YO MALE PT C/O TIGHT CHEST PAIN AND N/V-BLOOD. XYESTERDAY. REPORTS SUDDEN CONSTANT ONSET W/ PAIN AT MOST WHEN WALKING AND RADIATION TO L ARM. + NUMBING IN L ARM AND L LEG, -LOSS OF SENSATION / MUSCLE WEAKNESS IN BOTH EXTREMETIES. STATES CHRONIC BACK PAIN AND PENDING SURGERY FOR "PINCHED NERVE". NOTES FEVERS, CHILLS AND DYSURIA -BLOOD. PT WHEELCHAIR ASSISTED TO ROOM, NORMALLY AMBULATORY USING CANE. 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 HX: DIABETES NKA
[2022-04-24] MEDS ORDERED: MORPHINE SULFATE 10 MG/ML VIAL IVP ONE (14:25)
[2022-04-24] MEDS ORDERED: ONDANSETRON 4 MG/2 ML VIAL IVP ONE (14:25)
[2022-04-24] MEDS ORDERED: NACL 0.9% 1,000 ML IV ONE (14:25)
--- NOTE | 2022-04-24 14:25 | NUR ---
pt swabbed for covid(augustus) and flu. handed to lab
[2022-04-24 14:45] LABS: BASOPHILS # (AUTO) 0.1 K/uL (0.00-0.22); BASOPHILS % (AUTO) 0.9 % (0.0-2.0); EOSINOPHILS % (AUTO) 0.2 % (0.0-4.0); HEMATOCRIT 47.8 % (36-52); HEMOGLOBIN 16.2 g/dL (12.0-18.0); LYMPHOCYTES # (AUTO) 2.5 K/uL (2.0-11.5); LYMPHOCYTES % (AUTO) 21.5 % (20.5-51.1); MEAN CORPUSCULAR HEMOGLOBIN 31 pg (27-31); MEAN CORPUSCULAR HGB CONC 34 g/dL (33-37); MEAN CORPUSCULAR VOLUME 92.2 fL (80-94); MONOCYTES # (AUTO) 0.9 K/uL (0.8-1.0); MONOCYTES % (AUTO) 7.9 % (1.7-9.3); NEUTROPHILS # (AUTO) 8.1 K/uL (1.8-7.7); NEUTROPHILS % (AUTO) 69.5 % (42.2-75.2); PLATELET COUNT (AUTO) 393 K/uL (140-450); RED BLOOD CELL COUNT(AUTO) 5.19 MIL/uL (4.20-6.10); RED CELL DISTRIBUTION WIDTH 13.9 % (11.6-13.7); WHITE BLOOD COUNT (AUTO) 11.7 K/uL (4.8-10.8)
[2022-04-24 15:06] LABS: ALBUMIN 4.6 g/dL (3.4-5.0); ANION GAP 18.2 (8-16); ASPARTATE AMINOTRANSFERASE 25 U/L (15-37); CARBON DIOXIDE 27.7 mmol/L (21-32); CHLORIDE 96 mmol/L (98-107); CREATININE 1.2 mg/dL (0.6-1.3); GFR ARICAN-AMERICAN 78 mL/min (>90); GLUCOSE 152 mg/dL (74-106); LIPASE 24 U/L (73-393); POTASSIUM 3.9 mmol/L (3.5-5.1); SODIUM SERUM 138 mmol/L (136-145); TOTAL BILIRUBIN 0.7 mg/dL (0.0-1.0); UREA NITROGEN, BLOOD 13 mg/dL (7-18)
--- NOTE | 2022-04-24 15:30 | NUR ---
PT W/O RELIEF. MADE AWARE
[2022-04-24] MEDS ORDERED: KETOROLAC 15 MG/ML VIAL IVP ONE (15:35)
[2022-04-24] MEDS ORDERED: PANTOPRAZOLE 40 MG INJ VIAL IVP ONE (15:35)
[2022-04-24] MEDS ORDERED: ALUMINUM HYD/MAG/SIMETHICONE 30 ML UDC PO ONE (15:35)
[2022-04-24 17:50] LABS: APPEARANCE,URINE CLEAR (CLEAR); BILIRUBIN,URINE NEGATIVE (NEGATIVE); BLOOD, URINE TRACE (NEGATIVE); COLOR,URINE STRAW (YELLOW); PH,URINE 6.5 (5.0-9.0); UGLUCOSE 3+ (NEGATIVE)
[2022-04-24 17:51] LABS: LEUKOCYTE ESTERASE ,URINE NEGATIVE (NEGATIVE); NITRITE, URINE NEGATIVE (NEGATIVE); RBC,URINE NONE SEEN /HPF (0-5); WBC,URINE NONE SEEN /HPF (0-5)
[2022-04-24] MEDS ORDERED: METF-352 PO (18:34)
[2022-04-24] MEDS ORDERED: ACET-512 PO (18:34)
--- NOTE | 2022-04-24 18:39 | NUR ---
MADE AWARE OF PT VITALS
[2022-04-24] MEDS ORDERED: MAGNESIUM OXIDE 400 MG TAB PO PRN (18:40)
[2022-04-24] MEDS ORDERED: ACETAMINOPHEN 325 MG TAB PO PRN (18:40)
[2022-04-24] MEDS ORDERED: ONDANSETRON 4 MG/2 ML VIAL IVP PRN (18:40)
[2022-04-24] MEDS ORDERED: POTASSIUM CHLORIDE 10 MEQ TABER PO PRN (18:40)
[2022-04-24] MEDS ORDERED: hydrALAZINE 20 MG/ML VIAL IVP ONE (19:00)
[2022-04-24] MEDS ORDERED: MORPHINE SULFATE 4 MG/ML SYR IVP ONE (19:00)
--- NOTE | 2022-04-24 19:11 | NUR ---
REPORT GIVEN TO ARNOLD LOVE. TRANSFER OF CARE AT THIS TIME.
--- NOTE | 2022-04-24 19:19 | NUR ---
Patient lying in bed, A/Ox4, chest rise and fall symmetrical, no s/s of distress.
[2022-04-24] MEDS ORDERED: hydrALAZINE 20 MG/ML VIAL ONE (20:15)
[2022-04-24] MEDS: HYDROcodone/APAP 5/325 MG 1 TAB TAB PO PRN (22:06)
--- NOTE | 2022-04-24 22:48 | NUR ---
Patient lying in bed resting with eyes closed, A/Ox4, chest rise and fall symmetrical, no c/o pain or s/s of distress.
--- NOTE | 2022-04-25 00:20 | NUR ---
Patient lying in bed resting with eyes closed, A/Ox4, chest rise and fall symmetrical, no c/o pain or s/s of distress.
--- NOTE | 2022-04-25 01:22 | NUR ---
Patient lying in bed resting with eyes closed, A/Ox4, chest rise and fall symmetrical, no c/o pain or s/s of distress.
[2022-04-25] MEDS: MORPHINE SULFATE 4 MG/ML SYR IVP PRN ×4 (02:11→22:20)
--- NOTE | 2022-04-25 03:00 | NUR ---
Patient lying in bed resting with eyes closed, A/Ox4, chest rise and fall symmetrical, no c/o pain or s/s of distress.
--- NOTE | 2022-04-25 05:00 | NUR ---
Patient lying in bed resting with eyes closed, A/Ox4, chest rise and fall symmetrical, no c/o pain or s/s of distress.
--- NOTE | 2022-04-25 07:00 | NUR ---
Patient lying in bed resting with eyes closed, A/Ox4, chest rise and fall symmetrical, no c/o pain or s/s of distress.
--- NOTE | 2022-04-25 07:30 | NUR ---
REPORT RECEIVED FROM ARNOLD LOVE. ASSUMED CARE AT THIS TIME
--- NOTE | 2022-04-25 07:30 | NUR ---
Change of shift report given to AM shift Nurse Akua. AM shift Nurse Akua verbalized understanding, no further questions.
[2022-04-25 07:34] LABS: BASOPHILS # (AUTO) 0.1 K/uL (0.00-0.22); BASOPHILS % (AUTO) 1.1 % (0.0-2.0); EOSINOPHILS # (AUTO) 0.3 K/uL (0-0.4); EOSINOPHILS % (AUTO) 4.2 % (0.0-4.0); HEMATOCRIT 47.5 % (36-52); HEMOGLOBIN 15.7 g/dL (12.0-18.0); LYMPHOCYTES # (AUTO) 2.8 K/uL (2.0-11.5); LYMPHOCYTES % (AUTO) 42.8 % (20.5-51.1); MEAN CORPUSCULAR HEMOGLOBIN 31 pg (27-31); MEAN CORPUSCULAR HGB CONC 33 g/dL (33-37); MEAN CORPUSCULAR VOLUME 93.3 fL (80-94); MONOCYTES # (AUTO) 0.7 K/uL (0.8-1.0); MONOCYTES % (AUTO) 10.1 % (1.7-9.3); NEUTROPHILS # (AUTO) 2.7 K/uL (1.8-7.7); NEUTROPHILS % (AUTO) 41.8 % (42.2-75.2); PLATELET COUNT (AUTO) 348 K/uL (140-450); RED BLOOD CELL COUNT(AUTO) 5.09 MIL/uL (4.20-6.10); RED CELL DISTRIBUTION WIDTH 14.4 % (11.6-13.7); WHITE BLOOD COUNT (AUTO) 6.5 K/uL (4.8-10.8)
[2022-04-25 07:41] LABS: CARBON DIOXIDE 31.8 mmol/L (21-32); CREATININE 1.1 mg/dL (0.6-1.3); POTASSIUM 3.8 mmol/L (3.5-5.1)
[2022-04-25 07:50] LABS: MAGNESIUM 2.3 mg/dL (1.8-2.4); PHOSPHORUS 4.3 mg/dL (2.5-4.9)
[2022-04-25] MEDS ORDERED: INSULIN LISPRO SLIDING SCALE 100 UNITS/ML VIAL SUBQ PRN (08:20)
[2022-04-25] MEDS ORDERED: DEXTROSE 50% 50 ML SYR IVP PRN (08:20)
--- NOTE | 2022-04-25 08:28 | NUR ---
pt provided w/ breakfest. awake , repositioned and eating in bed
[2022-04-25] MEDS ORDERED: ASPIRIN 81 MG TAB.CHEW PO SCH (09:00)
[2022-04-25] MEDS ORDERED: ATORVASTATIN 20 MG TAB PO SCH (09:00)
--- NOTE | 2022-04-25 09:06 | NUR ---
PATIENT HAS BEEN SCREENED AND CATEGORIZED LOW NUTRITION RISK. PATIENT WILL BE SEEN WITHIN 7 DAYS OF ADMISSION. 04/24/22-05/01/[address]
[2022-04-25] MEDS: DOCUSATE SODIUM 100 MG GELCAP PO SCH (09:19)
[2022-04-25] MEDS: BLOOD GLUCOSE MONITORING 1 DEV DEV FS SCH ×3 (12:08→21:00)
--- NOTE | 2022-04-25 12:14 | NUR ---
Jack vaca in ED - 04/25/22 at 1447 by PHSEP pt provided w/ dinner. pt awake and eating in bed
--- NOTE | 2022-04-25 12:14 | NUR ---
pt provided w/ lunch. pt awake and eating in bed
[2022-04-25] MEDS: HYDROcodone/APAP 5/325 MG 1 TAB TAB PO PRN (13:36)
--- NOTE | 2022-04-25 14:00 | NUR ---
pt provided w/ hygiene supplies. left at bedside
--- NOTE | 2022-04-25 14:47 | NUR ---
pt at rest w/ eyes closed. respirations even and unlabored. on communications administrator.
--- NOTE | 2022-04-25 15:05 | NUR ---
PT IRRITATED "TOO MUCH NOISE" "I CANT SLEEP". MD BIBI TREADWELL
--- NOTE | 2022-04-25 15:10 | NUR ---
CALL BACK RECEIVED FROM MD MTZ. UPDATED ON PT STATUS. TO PUT IN ORDERS.
[2022-04-25] MEDS: LORazepam 1 MG TAB PO PRN (15:26)
[2022-04-25] MEDS ORDERED: PROCHLORPERAZINE 10 MG/2 ML VIAL IVP PRN (16:00)
--- NOTE | 2022-04-25 17:01 | NUR ---
Jack vaca in EDM - 04/25/22 at 1707 by PHSEP states relief. pt at rest supine position. bed at lowest position, bed rails upx2
--- NOTE | 2022-04-25 18:51 | NUR ---
pt provided w/ dinner. pt awake and eating in bed.
--- NOTE | 2022-04-25 19:27 | NUR ---
REPORT GIVEN TO ELKE LEVI OF CARE AT THIS TIME
--- NOTE | 2022-04-25 19:37 | NUR ---
RESUMED CARE FOR PATIENT. PATIENT CURRENTLY RESTING IN BED. PATIENT AAOX4. DENIES PAIN/CP/ SOB AT THIS TIME. PLACED ON BEDSIDE MONITOR. BED LOW AND LOCKED. SIDE RAIL X1 FOR SAFETY. ALL NEEDS MET.
--- NOTE | 2022-04-25 21:55 | NUR ---
PATIENT STATED "I WANNA GO HOME AND GET OUT OF HERE, GET ALL THIS OFF ME" PATIENT STATED THAT HE WAS TIRED OF WAITING IN THE ER. STATED THAT HE WAS GOING TO SIGN AMA FORM TO BRING IT TO HIM. ADMITTING MD PAGED. WAITING CALL BACK .
--- NOTE | 2022-04-25 22:02 | NUR ---
WHEN PATIENT WAS HANDED PAPER TO AMA. "STATED THAT NO ILL DECIDE IN AN HOUR". NOTIFIED PATIENT THAT WAS NOT AN OPTION. EDUCATED ON RISKS OF LEAVING AGAIN. PATIENT STATED THAT HE IS NOT COMFORTABLE IN ER. PATIENT STATED THAT HE WILL WAIT TILL THE MORNING.
--- NOTE | 2022-04-25 22:07 | NUR ---
PAGED SUPERVISOR RICE MILLING , TO CANCEL RQ FOR PATIENT AMA
--- NOTE | 2022-04-25 22:15 | NUR ---
VICKY ARGUETA MD. REPORTED THAT PATIENT NO LONGER WANTED TO AMA.
--- NOTE | 2022-04-25 22:20 | NUR ---
PATIENT COMPLAINED OF PAIN. MEDICATED PER ORDERS. TOLERATED WELL.
--- NOTE | 2022-04-26 01:08 | NUR ---
PATIENT RESTING WITH EYES CLOSED. RR APPEAR UNLABORED. DOESNT APPEAR TO BE IN DISTRESS. BED LOW AND LOCKED. CAROLEE SIDE RAILS UP FOR SAFETY. CALL LIGHT IN REACH. ALL NEEDS MET.
[2022-04-26] MEDS: LORazepam 1 MG TAB PO PRN (01:38)
--- NOTE | 2022-04-26 01:39 | NUR ---
PATIENT WOKE UP ANXIOUS S/P ALL THE DISRUPTIVE BEHAVIOR FROM ER PATIENTS. MEDICATED PER ORDERS.
--- NOTE | 2022-04-26 05:50 | NUR ---
Patient will be admitted to care of MD BIBI. Admited to TELEMETRY. Will go to room 111B. Belongings list completed. Report to KATE BARRETT. TRANSFER OF CARE
--- NOTE | 2022-04-26 05:55 | NUR ---
RECEIVED REPORT FROM ER NURSE ELKE FOR CONTINUITY OF CARE. PATIENT IS A&O X4. PATIENT IS ON ROOM AIR, BREATHING IS NORMAL WITH SYMMETRICAL RISE AND FALL OF CHEST. IV IS A 20G LAC, NO FLUIDS RUNNING AT THIS TIME (SALINE LOCKED). PATIENT IS ABLE TO AMBULATE WITH ASSIST. ADMISSION VITALS ARE: BP 131/77, HR 96, TEMP 98.5, O2 98, RR 18. WILL CONTINUE TO OBSERVE PATIENT.
[2022-04-26] MEDS: BLOOD GLUCOSE MONITORING 1 DEV DEV FS SCH ×2 (06:56→11:43)
[2022-04-26 07:14] LABS: BASOPHILS # (AUTO) 0.1 K/uL (0.00-0.22); BASOPHILS % (AUTO) 0.7 % (0.0-2.0); EOSINOPHILS # (AUTO) 0.4 K/uL (0-0.4); EOSINOPHILS % (AUTO) 3.2 % (0.0-4.0); HEMATOCRIT 44.4 % (36-52); HEMOGLOBIN 14.6 g/dL (12.0-18.0); LYMPHOCYTES # (AUTO) 2.4 K/uL (2.0-11.5); LYMPHOCYTES % (AUTO) 21.8 % (20.5-51.1); MEAN CORPUSCULAR HEMOGLOBIN 31 pg (27-31); MEAN CORPUSCULAR HGB CONC 33 g/dL (33-37); MEAN CORPUSCULAR VOLUME 93.4 fL (80-94); MONOCYTES # (AUTO) 0.9 K/uL (0.8-1.0); MONOCYTES % (AUTO) 7.8 % (1.7-9.3); NEUTROPHILS # (AUTO) 7.4 K/uL (1.8-7.7); NEUTROPHILS % (AUTO) 66.5 % (42.2-75.2); PLATELET COUNT (AUTO) 323 K/uL (140-450); RED BLOOD CELL COUNT(AUTO) 4.75 MIL/uL (4.20-6.10); RED CELL DISTRIBUTION WIDTH 14.1 % (11.6-13.7); WHITE BLOOD COUNT (AUTO) 11.2 K/uL (4.8-10.8)
--- NOTE | 2022-04-26 07:23 | NUR ---
RECEIVE SHIFT REPORT THAT PATIENT COME FROM ER AFTER 0500 FOR CHEST TIGHT X 1DAY, DIAGNOSIS CHEST PAIN W/ HX OF DM, NKA, FULL CODE, AMBULATORY W/ ASSIST, ALERT X 4, TACHYCARDIA IN ER AND ATIVAN & MORPHINE GIVEN. ON ACCUCHECK AC&HS, ROOM AIR, CARDIAC DIET, PIV AT LAC SALINE LOCK. PATIENT IS ADMIT OBSERVATION STATUS; COME FROM HOME, UNDER CARE OF DR. MTZ. WILL CONTINUE TO MONITOR Addendum: 04/26/22 at 1123 by Deloris Hunter RN PATIENT STABLE. VITAL WNL (T-P-R: 98.4-78-15, BP:123/81, O2 SAT: 99%) AT 0800, SHORTLY AFTER ADMIT INTO TEL/ MED/SURG FLOOR OBSERVATION STATUS. PCP INTERVIEWED PATIENT AND BASE ON ASSESSMENT. PATIENT DISCHARGE HOME. Addendum: 04/26/22 at 1250 by Deloris Hunter RN WHEEL PATIENT OUT THE FACILITY IN STABLE CONDITION. DISCHARGE INSTRUCTION GIVEN, DISCHARGE CONSENT SIGNED, IV ACCESS & WRIST BAND REMOVED.
--- NOTE | 2022-04-26 07:30 | NUR ---
OBTAINED BS; BS WAS 126, NO COVERAGE NEEDED. ENDORSED TO DAY SHIFT NURSE THOMAS FOR CONTINUITY OF CARE. PATIENT IS STABLE.
[2022-04-26 07:32] LABS: ANION GAP 10.2 (8-16); CARBON DIOXIDE 31.1 mmol/L (21-32); POTASSIUM 4.3 mmol/L (3.5-5.1)
[2022-04-26 07:40] LABS: PHOSPHORUS 3.5 mg/dL (2.5-4.9)
[2022-04-26 08:00] VITALS: BP 123/81
[2022-04-26] MEDS: DOCUSATE SODIUM 100 MG GELCAP PO SCH (09:41)
[2022-04-26 11:26] VITALS: BP 123/81
== END 2022-04-26 12:30 | disposition home or self-care (01) ==
LOC: MED 13:32 → MTU 18:37
PROVIDERS: ADMIT Internal Medicine; ATTEND Internal Medicine
DX: R07.89 Other chest pain (principal); Z20.822 Contact with and (suspected) exposure to COVID-19; R11.2 Nausea with vomiting, unspecified; R19.7 Diarrhea, unspecified; E11.9 Type 2 diabetes mellitus without complications; I10 Essential (primary) hypertension; D72.829 Elevated white blood cell count, unspecified; Z79.899 Other long term (current) drug therapy
CPT/HCPCS: 36415; 71045; 74176; 80048; 80053; 81001; 82948; 83690; 83735; 84100; 84484; 85025; 85379; 87081; 87426; 87804; 93005; 96372; 96374; 96375; 96376; 99285; C9113; G0378; J0360; J1644; J1885; J2270; J2405; Q0092

== ENCOUNTER 2022-12-05 09:21 | Emergency (ER) | payer OTHER ==
[~2022-12-05] VITALS: Ht 182.9 cm; Wt 70.4 kg
[~2022-12-05 09:21] MED LIST changes: +ACET-512 PO; -METF-1253; +METF-352 PO; -OXYC60TE PO
[2022-12-05 09:39] VITALS: PULSE 112; RESP 20; TEMP 97.8; O2SAT 98
[2022-12-05] MEDS ORDERED: KETOROLAC 30 MG/ML VIAL IM ONE (11:45)
[2022-12-05] MEDS ORDERED: IBUP-2213 PO (12:12)
[2022-12-05] MEDS ORDERED: PROM118S5 PO (12:12)
[2022-12-05] MEDS ORDERED: BENZ-300 PO (12:12)
[2022-12-05] MEDS ORDERED: KETOROLAC 30 MG/ML VIAL ONE (12:54)
[2022-12-05 13:21] VITALS: BP 119/78; PULSE 112; RESP 20; TEMP 97.8; O2SAT 98
--- NOTE | 2022-12-05 13:21 | NUR ---
Patient discharged with v/s stable. Written and verbal after care instructions given and explained. Patient alert, oriented and verbalized understanding of instructions. Ambulatory with to car. All questions addressed prior to discharge. ID band removed. Patient advised to follow up with PMD. Rx of CEPACOL,PROMETHAZINE,IBUPROFEN given. Patient educated on indication of medication including possible reaction and side effects. Opportunity to ask questions provided and answered.
== END 2022-12-05 13:21 | disposition home or self-care (01) ==
LOC: MED 09:21
DX: B34.9 Viral infection, unspecified (principal); Z20.822 Contact with and (suspected) exposure to COVID-19; E11.9 Type 2 diabetes mellitus without complications; I10 Essential (primary) hypertension; Z79.4 Long term (current) use of insulin; Z79.899 Other long term (current) drug therapy
CPT/HCPCS: 87081; 87426; 87804; 96372; 99283; J1885

== ENCOUNTER 2023-03-05 18:40 | Emergency (ER) | payer MEDICARE, OTHER ==
[~2023-03-05] VITALS: Ht 182.9 cm; Wt 75.7 kg
[~2023-03-05 18:40] MED LIST changes: +BENZ-300 PO; +IBUP-2213 PO; +PROM118S5 PO
[2023-03-05 18:51] VITALS: BP 141/100; PULSE 118; RESP 16; TEMP 98; O2SAT 98
[2023-03-05] MEDS ORDERED: LIDOCAINE/PRILOCAINE 2.5% 5 GM TUBE TP ONE ×2 (19:15→20:26)
[2023-03-05] MEDS ORDERED: KETOROLAC 30 MG/ML VIAL IM ONE (19:15)
[2023-03-05] MEDS ORDERED: CYCLOBENZAPRINE 10 MG TAB PO ONE (19:15)
[2023-03-05] MEDS ORDERED: CYCLOBENZAPRINE 10 MG TAB ONE (20:26)
[2023-03-05] MEDS ORDERED: KETOROLAC 30 MG/ML VIAL ONE (20:27)
[2023-03-05 21:30] VITALS: BP 141/100; PULSE 118; RESP 16; TEMP 98; O2SAT 98
== END 2023-03-05 21:30 | disposition left against medical advice (07) ==
LOC: MED 18:40
DX: M25.551 Pain in right hip (principal); I10 Essential (primary) hypertension; E11.9 Type 2 diabetes mellitus without complications; Z53.21 Procedure and treatment not carried out due to patient leaving prior to being seen by health care provider; Z79.4 Long term (current) use of insulin; Z79.899 Other long term (current) drug therapy
CPT/HCPCS: 72170; 99281; 99283; J1885

== ENCOUNTER 2023-03-20 23:30 | Emergency (ER) | payer OTHER ==
[~2023-03-20] VITALS: Ht 175.3 cm; Wt 72.1 kg
[2023-03-20 23:38] VITALS: BP 166/113; PULSE 110; RESP 20; TEMP 97.8; O2SAT 99
[2023-03-21] MEDS ORDERED: HYDROcodone/APAP 5/325 MG 1 TAB TAB PO ONE (01:45)
[2023-03-21] MEDS ORDERED: KETOROLAC 30 MG/ML VIAL IM ONE (01:45)
[2023-03-21 02:29] LABS: APPEARANCE,URINE CLEAR (CLEAR); BILIRUBIN,URINE NEGATIVE (NEGATIVE); BLOOD, URINE TRACE-I (NEGATIVE); COLOR,URINE YELLOW (YELLOW); LEUKOCYTE ESTERASE ,URINE NEGATIVE (NEGATIVE); NITRITE, URINE NEGATIVE (NEGATIVE); PROTEIN,URINE TRACE (NEGATIVE); UGLUCOSE TRACE (NEGATIVE); UROBILINOGEN,URINE 0.2 EU/dL (0.2 - 1)
[2023-03-21 02:34] LABS: BACTERIA,URINE 10-30 (MOD) /HPF (None Seen); MUCUS,URINE 1+ /LPF (None Seen); RBC,URINE 0-5 /HPF (0-5); SQUAMOUS EPITHELIAL CELL,UR 0-3 (FEW) /LPF (0-3 (FEW)); WBC,URINE 0-5 /HPF (0-5)
[2023-03-21] MEDS ORDERED: ACET-8905 PO (02:41)
[2023-03-21] MEDS ORDERED: NAPR-54 PO (02:41)
[2023-03-21] MEDS ORDERED: NITR100C7 PO (02:41)
[2023-03-21 03:17] VITALS: BP 165/102; PULSE 100; RESP 18; TEMP 97; O2SAT 97
[2023-03-22] MEDS ORDERED: DICL100G32 TP (13:02)
[2023-03-22] MEDS ORDERED: CYCL-711 PO (13:16)
== END 2023-03-21 03:19 | disposition home or self-care (01) ==
LOC: MED 23:30
DX: N39.0 Urinary tract infection, site not specified (principal); G89.29 Other chronic pain; M54.50 Low back pain, unspecified; E11.9 Type 2 diabetes mellitus without complications; I10 Essential (primary) hypertension; Z98.890 Other specified postprocedural states; Z79.899 Other long term (current) drug therapy; Z79.1 Long term (current) use of non-steroidal anti-inflammatories (NSAID); Z79.2 Long term (current) use of antibiotics
CPT/HCPCS: 81001; 96372; 99283; J1885

== ENCOUNTER 2023-03-22 10:20 | Emergency (ER) | payer OTHER ==
[~2023-03-22] VITALS: Ht 182.9 cm; Wt 71.7 kg
[~2023-03-22 10:20] MED LIST changes: +ACET-8905 PO; +NAPR-54 PO; +NITR100C7 PO
[2023-03-22 10:33] VITALS: BP 126/89; PULSE 113; RESP 18; TEMP 96.7; O2SAT 96
[2023-03-22] MEDS ORDERED: KETOROLAC 30 MG/ML VIAL IM ONE (11:25)
[2023-03-22] MEDS ORDERED: MORPHINE SULFATE 4 MG/ML SYR IM ONE (11:25)
[2023-03-22 12:07] LABS: BASOPHILS # (AUTO) 0.1 K/uL (0.00-0.22); BASOPHILS % (AUTO) 0.9 % (0.0-2.0); EOSINOPHILS # (AUTO) 0.2 K/uL (0-0.4); EOSINOPHILS % (AUTO) 2.8 % (0.0-4.0); HEMATOCRIT 43.7 % (36-52); HEMOGLOBIN 14.5 g/dL (12.0-18.0); LYMPHOCYTES # (AUTO) 1.7 K/uL (2.0-11.5); LYMPHOCYTES % (AUTO) 20.2 % (20.5-51.1); MEAN CORPUSCULAR HEMOGLOBIN 29 pg (27-31); MEAN CORPUSCULAR HGB CONC 33 g/dL (33-37); MEAN CORPUSCULAR VOLUME 86.5 fL (80-94); MONOCYTES # (AUTO) 0.7 K/uL (0.8-1.0); MONOCYTES % (AUTO) 8.3 % (1.7-9.3); NEUTROPHILS # (AUTO) 5.8 K/uL (1.8-7.7); NEUTROPHILS % (AUTO) 67.8 % (42.2-75.2); PLATELET COUNT (AUTO) 379 K/uL (140-450); RED BLOOD CELL COUNT(AUTO) 5.05 MIL/uL (4.20-6.10); WHITE BLOOD COUNT (AUTO) 8.5 K/uL (4.8-10.8)
[2023-03-22 12:22] LABS: ALBUMIN 4.1 g/dL (3.4-5.0); CARBON DIOXIDE 29.9 mmol/L (21-32); CREATININE 1.1 mg/dL (0.6-1.3); POTASSIUM 3.9 mmol/L (3.5-5.1); TOTAL BILIRUBIN 0.7 mg/dL (0.0-1.0)
[2023-03-22] MEDS ORDERED: DICL100G32 TP (13:02)
[2023-03-22] MEDS ORDERED: CYCL-711 PO (13:16)
[2023-03-22 14:01] VITALS: BP 126/89; PULSE 113; RESP 18; TEMP 96.7; O2SAT 96
== END 2023-03-22 14:01 | disposition home or self-care (01) ==
LOC: MED 10:20
DX: M54.31 Sciatica, right side (principal); M25.551 Pain in right hip; M25.511 Pain in right shoulder; E11.9 Type 2 diabetes mellitus without complications; I10 Essential (primary) hypertension; Z79.4 Long term (current) use of insulin; Z79.899 Other long term (current) drug therapy
CPT/HCPCS: 36415; 72110; 80053; 85025; 85651; 86140; 93971; 96372; 99285; J1885; J2270; Q0092

== ENCOUNTER 2023-03-27 18:15 | Emergency (ER) | payer OTHER, MEDICAID ==
[~2023-03-27] VITALS: Ht 175.3 cm; Wt 72.1 kg
[~2023-03-27 18:15] MED LIST changes: +CYCL-711 PO; +DICL100G32 TP
[2023-03-27 18:53] VITALS: BP 125/87; PULSE 96; RESP 16; TEMP 97.2; O2SAT 99
[2023-03-27] MEDS ORDERED: IBUP-2213 PO (20:24)
== END 2023-03-27 20:52 | disposition home or self-care (01) ==
LOC: MED 18:18
DX: S90.822A Blister (nonthermal), left foot, initial encounter (principal); S90.821A Blister (nonthermal), right foot, initial encounter; E11.9 Type 2 diabetes mellitus without complications; I10 Essential (primary) hypertension; Z79.4 Long term (current) use of insulin; Z79.899 Other long term (current) drug therapy; X58.XXXA Exposure to other specified factors, initial encounter; Y93.89 Activity, other specified; Y92.89 Other specified places as the place of occurrence of the external cause; Y99.8 Other external cause status
CPT/HCPCS: 99282

== ENCOUNTER 2023-11-11 14:35 | Emergency (ER) | payer MEDICARE, MEDICAID ==
[~2023-11-11] VITALS: Ht 182.9 cm; Wt 72.6 kg
[~2023-11-11 14:35] MED LIST changes: +NAPR-337 PO; -NAPR-54 PO
[2023-11-11 15:16] VITALS: BP 132/86; PULSE 104; RESP 18; TEMP 97.3; O2SAT 99
[2023-11-11] MEDS: BACITRACIN OINT 500 UNITS/GM PKT TP ONE (16:46)
[2023-11-11] MEDS: KETOROLAC 30 MG/ML VIAL IM ONE (16:46)
[2023-11-11] MEDS ORDERED: BACI-418 TP (18:35)
[2023-11-11] MEDS ORDERED: AMOX-1230 PO (18:35)
[2023-11-11] MEDS ORDERED: IBUP-2213 PO (18:35)
== END 2023-11-11 19:20 | disposition left against medical advice (07) ==
LOC: MED 14:35
DX: S61.257A Open bite of left little finger without damage to nail, initial encounter (principal); S63.614A Unspecified sprain of right ring finger, initial encounter; E11.9 Type 2 diabetes mellitus without complications; I10 Essential (primary) hypertension; F17.210 Nicotine dependence, cigarettes, uncomplicated; Z79.1 Long term (current) use of non-steroidal anti-inflammatories (NSAID); Z79.2 Long term (current) use of antibiotics; Z79.899 Other long term (current) drug therapy; Z98.890 Other specified postprocedural states; Z79.84 Long term (current) use of oral hypoglycemic drugs; W50.3XXA Accidental bite by another person, initial encounter; Y93.89 Activity, other specified; Y92.89 Other specified places as the place of occurrence of the external cause; Y99.8 Other external cause status
CPT/HCPCS: 73140; 96372; 99283; J1885